=== PATIENT | male | born 1965 | race Caucasian/White ===

== ENCOUNTER 2022-01-02 12:22 | Emergency (ER) | payer OTHER, SELFPAY ==
--- NOTE | ~2022-01-02 | XR_ITS ---
EXAMINATION: XR tibia fibula RT 2V, XR foot RT min 3V CLINICAL INFORMATION: Wound to right lower extremity. Right second toe/foot and leg wounds. Question osteoma COMPARISON: None. TECHNIQUE: AP and lateral views of the right tibia and fibula. 3 views of the right foot. FINDINGS: The right tibia and fibula are intact. No fracture or dislocation seen. No soft tissue gas or radiopaque foreign body. Small plantar calcaneal osteophyte. There are vascular calcifications in the foot consistent with diabetes. Mild osteoarthritis of the first tarsal metatarsal joint as well as first metatarsal sesamoid osteoarthritis. Dedicated views of the right second toe were not obtained, limiting evaluation. No cortical destruction or demineralization seen. No focal soft tissue swelling or soft tissue gas. XR/XR foot RT min 3V IMPRESSION: No acute osseous abnormality seen. Although dedicated views of the right second toe were not obtained, there are no areas of cortical destruction or periosteal reaction seen on the radiographs of the right foot, tibia, and fibula to suggest osteomyelitis. Consider MRI for definitive evaluation as clinically indicated.
--- NOTE | ~2022-01-02 | US_ITS ---
EXAMINATION: US VENOUS ULTRASOUND WITH DOPPLER LOWER EXTREMITY, RIGHT CLINICAL INFORMATION: Patient with wound of the right lower extremity COMPARISON: None TECHNIQUE: Ultrasound of the deep veins is performed from the hip to the calf with compression sonography and color and pulse Doppler assessment. Spectral analysis with color-flow imaging is performed. FINDINGS: There is normal venous compression and respiratory variation and augmented flow. The visualized common femoral vein, superficial femoral vein, profunda femoral vein, popliteal vein, and the trifurcation region shows no evidence of deep venous thrombosis. There is no significant popliteal fossa cyst. There are prominent right inguinal lymph nodes although they have benign morphologic features, most notably an echogenic central fatty hilum. If the patient's symptoms persist, followup ultrasound in 5 days 7 days might be of value to exclude proximal propagation from a non-visualized calf vein. US/US venous duplex LE RT IMPRESSION: No DVT demonstrated in the right lower extremity. Prominent right inguinal lymph nodes, presumably reactive.
--- NOTE | ~2022-01-02 | XR_ITS ---
EXAMINATION: XR tibia fibula RT 2V, XR foot RT min 3V CLINICAL INFORMATION: Wound to right lower extremity. Right second toe/foot and leg wounds. Question osteoma COMPARISON: None. TECHNIQUE: AP and lateral views of the right tibia and fibula. 3 views of the right foot. FINDINGS: The right tibia and fibula are intact. No fracture or dislocation seen. No soft tissue gas or radiopaque foreign body. Small plantar calcaneal osteophyte. There are vascular calcifications in the foot consistent with diabetes. Mild osteoarthritis of the first tarsal metatarsal joint as well as first metatarsal sesamoid osteoarthritis. Dedicated views of the right second toe were not obtained, limiting evaluation. No cortical destruction or demineralization seen. No focal soft tissue swelling or soft tissue gas. XR/XR tibia fibula RT 2V IMPRESSION: No acute osseous abnormality seen. Although dedicated views of the right second toe were not obtained, there are no areas of cortical destruction or periosteal reaction seen on the radiographs of the right foot, tibia, and fibula to suggest osteomyelitis. Consider MRI for definitive evaluation as clinically indicated.
--- NOTE | ~2022-01-02 | US_ITS ---
EXAMINATION: ULTRASOUND ARTERIAL DUPLEX, RIGHT CLINICAL INFORMATION: Wound to right lower extremity COMPARISON: None TECHNIQUE: Arterial duplex imaging of the right lower extremity arterial system was performed. FINDINGS: There is bulky calcified atherosclerotic plaque throughout the common femoral artery with elevated peak systolic velocities of 228 cm/s. There is monophasic flow in the common femoral artery. Bulky plaque with elevated velocities in the profunda femoral artery with peak systolic velocities of 382 cm/s. Extensive calcified plaque in the SFA with monophasic waveforms and tardus parvus waveforms throughout the SFA and in the popliteal artery and posterior tibial artery. US/US arterial duplex LE RT IMPRESSION: There is severe bulky atherosclerotic disease in the right lower extremity. Monophasic waveforms in the common femoral artery suggesting inflow disease. Severe bulky atherosclerotic disease in the common femoral artery and throughout the SFA with tardus parvus waveforms.
--- NOTE | ~2022-01-02 | XR_ITS ---
EXAMINATION: XR KNEE, LEFT CLINICAL INFORMATION: Left knee pain and swelling. COMPARISON: None TECHNIQUE: Four views of the left knee. FINDINGS: Status post below-knee amputation. The distal soft tissue stump is intact. The distal margin of the tibia is intact. The left knee joint is unremarkable. There is no joint effusion. Moderate to severe atherosclerosis. XR/XR knee LT 4V IMPRESSION: Below knee amputation changes without acute abnormality.
[2022-01-02 12:31] VITALS: BP 141/63; BP 146/73; PULSE 53; PULSE 57; RESP 18; TEMP 36.5; O2SAT 100; BMI 24.1
--- NOTE | 2022-01-02 13:06 | ED_ITS ---
HPI - Wound/Laceration General Chief Complaint: Wound/Laceration Stated Complaint: diabetic wounds Time Seen by Provider: 01/02/22 12:37 Source: patient and EMS Mode of arrival: EMS Limitations: no limitations History of Present Illness HPI narrative: 56-year-old male with a past medical history of alcohol abuse, diabetes mellitus type 2, hypertension, liver cirrhosis, opioid use disorder, tobacco abuse, PA D and history of left BKA presenting to the ED with complaints of wounds to his right lower extremity over the past 9 months worse in the past week where he has been feeling ?not well?. He reports he is often picking at the wounds due to they are ?itchy?. He reports also this morning he forgot that he had a pljyr-bgx-smhe amputation therefore he tried to walk without his prosthesis in and fell directly onto his left ndrrm-vgc-mdcw amputation/stump and has been having pain since then. He denies any fevers, chills, dizziness, headaches, neck pain/stiffness, trouble swallowing or breathing, chest pain or shortness of breath, paresthesias, palpitations, nausea/vomiting/constipation, black or blood y stools, abdominal pain, recent travel or sick contacts, history of IV drug use or alcohol usage. Reports that he smokes approximately 1 and half packs of cigarettes daily. Denies any recent travel or immobilization or history of DVT or PE or any other symptoms complaints or concerns at this time. Onset (ago): month(s) (9 months worse in the past few weeks ) Extremity Location: right: thigh, knee, lower leg, ankle and foot Related Data Allergies Allergy/AdvReac Type Severity Reaction Status Date / Time No Known Allergies Allergy Verified 01/02/22 12:47 Review of Systems Review of Systems: Constitutional : Denies history of same, Denies any other sites involved, Denies IV drug use, Denies history of MRSA, Denies swollen glands, Denies injury, Denies Fever, Denies Chills, No Sig Pain, Denies Systemic symptoms Cardiovascular : No Chest Pain, No SOB Respiratory : No Dyspnea Gastrointestinal : No abdominal pain Musculoskeletal : No Joint Swelling Skin : + wounds with mild surrounding erythema, No skin abscess, No skin laceration, No Foreign bodies, No spreading rash, Denies bites, Denies discharge, Neuro : No Weakness, No Numbness/tingling Psych : No SI/HI/thoughts of self injury Yes all other systems are reviewed and are negative [facility] Past Medical History Attestation statement: The following information was validated with the patient. Source: old records reviewed and nursing notes reviewed Social History Social History Alcohol intake: former Patient Tobacco Use Status: Current everyday Tobacco user Use of substances other than those prescribed or required for medical reasons: Yes Substance Use Type: Marijuana Advance Directives: No Advance Directives Information Provided: No Physical Exam Vital Signs: Vital Signs: Last Vital Signs Temp 98.3 F 01/02/22 17:10 Pulse 66 01/02/22 17:10 Resp 20 01/02/22 17:10 BP 119/66 01/02/22 17:10 Pulse Ox 99 01/02/22 17:10 O2 Del Method 01/02/22 17:10 BMI result Body Mass Index 24.1 vital signs have been reviewed as normal and appeared to be correct. Blood pressure 141/63 Heart rate normal. Respiration rate normal. Temperature normal. Oxygen saturation normal. Appearance: Alert. Oriented X3. No acute distress. Head: Normal external exam. Normocephalic. Atraumatic. Eyes: PERRLA. EOMI. Conjunctiva and sclera normal. Eyelids normal. ENT: Pharynx normal. Uvula midline. Moist mucous membranes. Neck: Normal inspection. Neck supple. FROM. CVS: Normal heart rate and rhythm. Respiratory: No respiratory distress. Painless inspiration. Skin: Skin warm and dry. Normal skin color. Normal skin turgor. Patient multiple wounds to right lower extremity with mild surrounding erythema although no streaking/induration/fluctuance or drainage noted at this time or any foreign bodies. No additional rashes/lesions/lacerations noted. Extremities: No lower extremity edema. + right sided calf tenderness noted. Patient noted to have below the knee amputation to left lower extremity stump appears well no signs of infection although he does have some tenderness palpation and bruising. Otherwise all other extremities exhibit normal range of motion nontender. Neuro: Oriented X 3. No motor deficit. No sensory deficit. Reflexes normal. Normal steady gait. No focal neuro deficits noted. Vascular: + radial pulses/+ 2 distal pedal pulses RLE/+2 dorsalis pedis to RLE. Normal cap refill. No cyanosis noted to upper extremity nails and right lower extremity toes nails. Course Course Course Narrative: 12:50pm - 56-year-old male with a past medical history of alcohol abuse, diabetes mellitus type 2, hypertension, liver cirrhosis, opioid use disorder, tobacco abuse, PAD and history of left BKA presenting to the ED with complaints of wounds to his right lower extremity over the past 9 months worse in the past week where he has been feeling ?not well?. He reports he is often picking at the wounds due to they are ?itchy?. He reports also this morning he forgot that he had a [id number]-[id number]-bihb amputation therefore he tried to walk without his prosthesis in and fell directly onto his left szjmh-mus-ejhl amputation/stump and has been having pain since then. Plan: Will obtain labs including ESR/CRP, blood cultures, lactic acid, x-ray of the left knee where his sszdo-qjz-pibx amputation was performed due to pain, x- ray of right foot/leg and re-evaluate. Reevaluation(s) Reevaluation #1: - labs return patient with an H&H of 11.0/34.0 - platelet count 123. - ESR 40. - BUN 8. - random glucose 143. - alkaline phosphate 209 - CRP 1.45 - otherwise all other labs are within normal limits. - venous duplex ultrasound of right lower extremity negative for DVT although revealed a prominent right inguinal lymph node presumptively reactive. - right tibia/fibula/right foot x-rays revealed chronic changes no acute processes and no evidence of acute osteomyelitis at this time. - left knee x-ray revealed chronic changes no acute processes noted. - awaiting duplex scan of right lower extremity arterial if negative patient will be evaluated by care team along with case management for possible placement. - the nurse called Marisa Martinez and apparently the patient was discharged from [facility] [place] 3 days ago without any pain medications and arrived there today and they are unable to take care of him with all of his wounds therefore they sent him here for further evaluation treatment. Patient reports that he was being treated with oxycodone and Dilaudid around the clock at [facility] is requesting pain meds at this time although explained to him that I will not be giving him any pain meds until I get records from [facility] [place] will give at least Toradol to treat his pain at this time. Will re-evaluate. Time: 15:27 Reevaluation #2: - I received records from [facility] [place] and it appears that the patient was admitted for multiple reasons which include nausea/vomiting/diarrhea/pancolitis/alcohol abuse/PVD due to his right leg wounds and opioid abuse where they had him on IV Dilaudid a small course and then was sent home on oxycodone 20 tablets and referred to a [facility] for detox due to he refused Suboxone due to he reports he was on it in the past and did not like it although interested in possible methadone although he was sent here for further evaluation treatment due to Yessenia Martinez reported they cannot care for him with the wounds at this time. 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 - will place patient on Keflex for possible cellulitis to wounds otherwise Will continue to monitor. Time: 16:05 [facility] - Wound/Laceration Medical Records Attestation: I reviewed the patient's medical records. Lab Data Attestation: I reviewed the patient's lab results. Result diagrams: 01/02/22 13:26 01/02/22 13:25 Labs: Lab Results 01/02/22 01/02/22 01/02/22 Range/Units 13:25 13:25 13:26 WBC 6.6 (4.8-10.8) X10*3/uL RBC 3.83 L (4.60-5.80) X10*6/uL Hgb 11.0 L (14.0-18.0) g/dl Hct 34.0 L (42.0-52.0) % MCV 88.8 (80.0-98.0) fL MCH 28.7 (27.0-33.0) pg MCHC 32.4 (31.0-36.0) g/dl RDW 17.5 H (11.0-16.0) % Plt Count 123 L (160-400) X10*3/uL MPV 8.5 L (9.4-12.4) fL Immature Gran % (Auto) 0.5 H (0.0-0.4) % Neut % (Auto) 65.6 (45-73) % Lymph % (Auto) 21.8 (20-40) % [place] % (Auto) 8.7 (2-11) % Eos % (Auto) 2.9 (0-4) % Baso % (Auto) 0.5 (0-2) % Lymph # (Auto) 1.4 (1.2-4.9) X10*3/uL [place] # (Auto) 0.6 (0.1-1.2) X10*3/uL Eos # (Auto) 0.2 (0.0-0.4) X10*3/uL Baso # (Auto) 0.0 (0.0-0.2) X10*3/uL Abs Immat Gran (auto) 0.03 (0.00-0.03) X10*3/uL Absolute Neuts (auto) 4.3 (2.0-8.3) x10*3/uL Absolute Nucleated RBC 0.000 (0.0-0.012) X10*3/uL Nucleated RBC % (auto) 0.0 (0.0-0.2) /100WBC ESR (0-15) MM/HR PT (10.0-13.1) SEC INR (0.9-1.1) Sodium 142 (135-145) mmol/L Potassium 3.6 (3.3-5.1) mmol/L Chloride 105 (96-108) mmol/L Carbon Dioxide 27 (22-29) mmol/L Anion Gap 14 (12-20) BUN 8 L (9-16) mg/dL Creatinine 0.80 (0.5-1.4) mg/dL Estim Creat Clear Calc 85.3 Estimated GFR > 60 Random Glucose 143 H (60-115) mg/dL Lactic Acid 1.2 (0.5-2.0) mmol/L Calcium 9.2 (8.4-10.2) mg/dL Magnesium 1.8 (1.6-2.6) mg/dL Total Bilirubin 0.5 (0.0-1.0) mg/dL AST 32 (5-37) U/L ALT 31 (0-40) U/L Alkaline Phosphatase 209 H (39-117) U/L C-Reactive Protein 1.45 H (< or = 0.50) mg/dL Total Protein 6.7 (6.5-8.0) g/dL Albumin 3.5 (3.5-5.0) g/dL 01/02/22 01/02/22 Range/Units 13:26 13:26 WBC (4.8-10.8) X10*3/uL RBC (4.60-5.80) X10*6/uL Hgb (14.0-18.0) g/dl Hct (42.0-52.0) % MCV (80.0-98.0) fL MCH (27.0-33.0) pg MCHC (31.0-36.0) g/dl RDW (11.0-16.0) % Plt Count (160-400) X10*3/uL MPV (9.4-12.4) fL Immature Gran % (Auto) (0.0-0.4) % Neut % (Auto) (45-73) % Lymph % (Auto) (20-40) % [place] % (Auto) (2-11) % Eos % (Auto) (0-4) % Baso % (Auto) (0-2) % Lymph # (Auto) (1.2-4.9) X10*3/uL [place] # (Auto) (0.1-1.2) X10*3/uL Eos # (Auto) (0.0-0.4) X10*3/uL Baso # (Auto) (0.0-0.2) X10*3/uL Abs Immat Gran (auto) (0.00-0.03) X10*3/uL Absolute Neuts (auto) (2.0-8.3) x10*3/uL Absolute Nucleated RBC (0.0-0.012) X10*3/uL Nucleated RBC % (auto) (0.0-0.2) /100WBC ESR 40 H (0-15) MM/HR PT 14.1 H (10.0-13.1) SEC INR 1.2 H (0.9-1.1) Sodium (135-145) mmol/L Potassium (3.3-5.1) mmol/L Chloride (96-108) mmol/L Carbon Dioxide (22-29) mmol/L Anion Gap (12-20) BUN (9-16) mg/dL Creatinine (0.5-1.4) mg/dL Estim Creat Clear Calc Estimated GFR Random Glucose (60-115) mg/dL Lactic Acid (0.5-2.0) mmol/L Calcium (8.4-10.2) mg/dL Magnesium (1.6-2.6) mg/dL Total Bilirubin (0.0-1.0) mg/dL AST (5-37) U/L ALT (0-40) U/L Alkaline Phosphatase (39-117) U/L C-Reactive Protein (< or = 0.50) mg/dL Total Protein (6.5-8.0) g/dL Albumin (3.5-5.0) g/dL Imaging Data Right tibia/fibula/right foot x-ray: Attestation: I personally reviewed and interpreted this imaging study as follows: Radiologist's impression: FINDINGS: The right tibia and fibula are intact. No fracture or dislocation seen. No soft tissue gas or radiopaque foreign body. Small plantar calcaneal osteophyte. There are vascular calcifications in the foot consistent with diabetes. Mild osteoarthritis of the first tarsal metatarsal joint as well as first metatarsal sesamoid osteoarthritis. Dedicated views of the right second toe were not obtained, limiting evaluation. No cortical destruction or demineralization seen. No focal soft tissue swelling or soft tissue gas. XR/XR tibia fibula RT 2V IMPRESSION: No acute osseous abnormality seen. ? Although dedicated views of the right second toe were not obtained, there are no areas of cortical destruction or periosteal reaction seen on the radiographs of the right foot, tibia, and fibula to suggest osteomyelitis. Consider MRI for definitive evaluation as clinically indicated.? Left knee x-ray: Attestation: I personally reviewed and interpreted this imaging study as follows: Radiologist's impression: FINDINGS: Status post below-knee amputation. The distal soft tissue stump is intact. The distal margin of the tibia is intact. The left knee joint is unremarkable. There is no joint effusion. Moderate to severe atherosclerosis.? XR/XR knee LT 4V IMPRESSION: Below knee amputation changes without acute abnormality. Venous duplex ultrasound of right lower extremity: Attestation: I personally reviewed and interpreted this imaging study as follows: Radiologist's impression: FINDINGS: There is normal venous compression and respiratory variation and augmented flow. The visualized common femoral vein, superficial femoral vein, profunda femoral vein, popliteal vein, and the trifurcation region shows no evidence of deep venous thrombosis. ? There is no significant popliteal fossa cyst. There are prominent right inguinal lymph nodes although they have benign morphologic features, most notably an echogenic central fatty hilum. If the patient's symptoms persist, followup ultrasound in 5 days 7 days might be of value to exclude proximal propagation from a non-visualized calf vein. US/US venous duplex LE RT IMPRESSION: No DVT demonstrated in the right lower extremity. ? Prominent right inguinal lymph nodes, presumably reactive. Arterial ultrasound of right lower extremity: Attestation: I personally reviewed and interpreted this imaging study as follows: Radiologist's impression: FINDINGS: There is bulky calcified atherosclerotic plaque throughout the common femoral artery with elevated peak systolic velocities of 228 cm/s. There is monophasic flow in the common femoral artery. Bulky plaque with elevated velocities in the profunda femoral artery with peak systolic velocities of 382 cm/s. Extensive calcified plaque in the SFA with monophasic waveforms and tardus parvus waveforms throughout the SFA and in the popliteal artery and posterior tibial artery. US/US arterial duplex LE RT IMPRESSION: There is severe bulky atherosclerotic disease in the right lower extremity. Monophasic waveforms in the common femoral artery suggesting inflow disease. Severe bulky atherosclerotic disease in the common femoral artery and throughout the SFA with tardus parvus waveforms.? Critical Care Time Critical Care Time Critical Care Time: Yes Total Critical Care Time: 60 Attestation: I personally attest to this time spent taking care of the patient Discharge Plan Discharge Clinical Impression: Wounds, multiple, Substance abuse, Opioid dependence Patient Disposition: Still a Patient
[2022-01-02 13:29] LABS: MANUAL DIFF FLAG NO
[2022-01-02 13:32] LABS: Basophils Percent Auto 0.5 % (0-2); Eosinophils Absolute Auto 0.2 X10*3/uL (0.0-0.4); Eosinophils Percent Auto 2.9 % (0-4); Imm Gran Abs Auto 0.03 X10*3/uL (0.00-0.03); Imm Gran Pct Auto 0.5 % (0.0-0.4); Lymphocytes Absolute Auto 1.4 X10*3/uL (1.2-4.9); Lymphocytes Percent Auto 21.8 % (20-40); Mean Corpuscular HGB Conc 32.4 g/dl (31.0-36.0); Mean Corpuscular Hemoglobin 28.7 pg (27.0-33.0); Mean Corpuscular Volume 88.8 fL (80.0-98.0); Mean Platelet Volume 8.5 fL (9.4-12.4); Monocytes Absolute Auto 0.6 X10*3/uL (0.1-1.2); Monocytes Percent Auto 8.7 % (2-11); Neutrophils Absolute Auto 4.3 x10*3/uL (2.0-8.3); Neutrophils Percent Auto 65.6 % (45-73); Platelet Count 123 X10*3/uL (160-400); Red Blood Count 3.83 X10*6/uL (4.60-5.80); Red Cell Distribution Width 17.5 % (11.0-16.0); White Blood Count 6.6 X10*3/uL (4.8-10.8)
[2022-01-02 13:37] LABS: INTERNATIONAL NORM RATIO 1.2 (0.9-1.1); Prothrombin Time 14.1 SEC (10.0-13.1)
[2022-01-02 13:41] LABS: Lactic Acid 1.2 mmol/L (0.5-2.0)
--- NOTE | 2022-01-02 13:48 | PC.NURSE ---
per Michelle at [facility] - pt called to obtain a detox bed as he was d/c from [facility] - while at [facility] he was receiving round the clock opiates and was discharged home with non . per Yessenia Martinez, pt left out the fact that he has diabetic ulcers covering his R leg and therefore they do not have the medical needs to care for those - pt would do better at [facility] or other facility with additional medical treatment. Michelle informed t/w that pt has been home for three days without pain medications and sought detox as he now feels that he is withdrawing. pt with no N/V, no tremors, diaphoresis or other COWS withdrawing sx at this time. Miriam WRIGHT seeking medical record from [facility].
[2022-01-02 13:56] LABS: Alanine Aminotransferase 31 U/L (0-40); Albumin Level 3.5 g/dL (3.5-5.0); Alkaline Phosphatase 209 U/L (39-117); Anion Gap 14 (12-20); Aspartate Amino Transferase 32 U/L (5-37); Bilirubin Total 0.5 mg/dL (0.0-1.0); Blood Urea Nitrogen 8 mg/dL (9-16); C Reactive Protein 1.45 mg/dL (< or = 0.50); Calcium 9.2 mg/dL (8.4-10.2); Carbon Dioxide 27 mmol/L (22-29); Chloride 105 mmol/L (96-108); Creatinine Clr Calc Pharmacy 85.3; Estimated Glomerular Filt Rate > 60; Glucose Random 143 mg/dL (60-115); Magnesium 1.8 mg/dL (1.6-2.6); Potassium 3.6 mmol/L (3.3-5.1); Sodium 142 mmol/L (135-145); Total Protein 6.7 g/dL (6.5-8.0)
[2022-01-02 14:13] LABS: Erythrocyte Sedimentation Rate 40 MM/HR (0-15)
[2022-01-02] MEDS: Ketorolac Tromethamine 30 MG/ML VIAL IVPUSH (14:30)
[2022-01-02 17:10] VITALS: BP 119/66; PULSE 66; RESP 20; TEMP 36.8; O2SAT 99
--- NOTE | 2022-01-02 17:20 | ECG_ITS ---
Test Reason : REQUESTING METHADONE Blood Pressure : / mmHG Vent. Rate : 063 BPM Atrial Rate : 063 BPM P-R Int : 154 ms QRS Dur : 084 ms QT Int : 444 ms P-R-T Axes : 035 040 064 degrees QTc Int : 454 ms Sinus rhythm with marked sinus arrhythmia Otherwise normal ECG No previous ECGs available Referred By: Miriam Davis Electronically Signed By:MEGA CRENSHAW
[2022-01-02] MEDS: cephALEXin 500 MG CAPSULE PO (18:42)
[2022-01-02] MEDS: methADONE HCl 20 MG/2 ML ORAL.CONC PO (18:42)
--- NOTE | 2022-01-02 19:00 | PC.NURSE ---
RN assumed care of the patient at this time.
--- NOTE | 2022-01-02 20:37 | PC.NURSE ---
Patient discharged with IV in right arm. RN called patient to see if he could come back, patient denied. Patient offered to take out IV himself and states he will call when home. [place] made aware and will follow up with patient. PD will call after following up with patient.
--- NOTE | 2022-01-03 13:30 | MHC.CM.PN ---
PT DISCHARGED PRIOR TO CM SHIFT STARTING
== END 2022-01-02 20:39 | disposition home or self-care (01) ==
PROVIDERS: Physician Assistant Medical; Emergency Provider Emergency Medicine
DX: S81.801A Unspecified open wound, right lower leg, initial encounter (principal); X58.XXXA Exposure to other specified factors, initial encounter; M79.604 Pain in right leg; M25.562 Pain in left knee; F10.10 Alcohol abuse, uncomplicated; Y90.9 Presence of alcohol in blood, level not specified; F19.10 Other psychoactive substance abuse, uncomplicated; F12.90 Cannabis use, unspecified, uncomplicated; F11.20 Opioid dependence, uncomplicated; E11.9 Type 2 diabetes mellitus without complications; I10 Essential (primary) hypertension; K74.60 Unspecified cirrhosis of liver; F17.200 Nicotine dependence, unspecified, uncomplicated; Y93.9 Activity, unspecified; Y92.9 Unspecified place or not applicable; Y99.9 Unspecified external cause status; Z89.512 Acquired absence of left leg below knee
CPT/HCPCS: 36415; 73564; 73590; 73630; 80053; 83605; 83735; 85025; 85610; 85652; 86140; 87040; 93005; 93926; 93971; 96374; 99285; J1885